=== PATIENT | male | born 1965 | race Caucasian/White ===

== ENCOUNTER 2020-06-30 14:25 | Emergency (ER) | payer MEDICARE, OTHER ==
[~2020-06-30] VITALS: Ht 185.4 cm; Wt 69.5 kg
[2020-06-30 15:17] LABS: CLARITY,URINE CLEAR (Clear); COLOR,URINE YELLOW (Yellow); GLUCOSE, URINE NEGATIVE (Neg); KETONES,URINE NEGATIVE (Neg); LEUKOCYTE ESTERASE ,URINE NEGATIVE (Neg); NITRITES, URINE NEGATIVE (Neg); OCCULT BLOOD,URINE TRACE-INTACT (Neg); PH,URINE 6.5 (4.8-8.0); PROTEIN,URINE NEGATIVE (Neg); UROBILINOGEN,URINE 0.2 E.U/dL (0.2-1.0)
[2020-06-30 15:24] LABS: UA COLLECTION TYPE VOIDED
[2020-06-30 15:25] LABS: SQUAMOUS EPITHELIAL CELL,UR FEW /LPF (FEW); URINE AMPHETAMINE SCREEN NEGATIVE (Neg); URINE BARBITUATE SCREEN NEGATIVE (Neg); URINE BENZODIAZEPINES SCREEN NEGATIVE (Neg); URINE CANNABINOID SCREEN NEGATIVE (Neg); URINE COCAINE SCREEN NEGATIVE (Neg); URINE METHADONE SCREEN NEGATIVE (Neg); URINE OPIATE SCREEN NEGATIVE (Neg); URINE PHENCYCLIDINE SCREEN NEGATIVE (Neg)
[2020-06-30 15:26] LABS: BACTERIA,URINE FEW /HPF (Neg); RBC,URINE 0-2 /HPF (0-2); WBC,URINE 0-4 /HPF (0-4)
--- NOTE | 2020-06-30 16:33 | NUR ---
[facility] PHONE [phone] CELL [phone]
--- NOTE | 2020-06-30 16:37 | NUR ---
CALLED [facility] RE: LOCATION OF DR DUQUE, THEY DO NOT KNOW, WILL REMIND HIM IF THEY SEE HIM
--- NOTE | 2020-06-30 17:30 | NUR ---
PT SITTING ON THE SIDE OF THE BED LOOKING OUTSIDE WITH BLANKET AROUND HIM.NO DISTRESS NOTED ,WILL CONT TO MONITOR .BREAKING PRIMARY NURSE AT THIS TIME.
--- NOTE | 2020-06-30 18:00 | NUR ---
Jessica at bedside
--- NOTE | 2020-06-30 19:00 | NUR ---
pt was placed on a 1798, I let him know of hold, he does not wish to have labs and is hungry, will allow to eat then will obtain labs
--- NOTE | 2020-06-30 19:00 | NUR ---
pt in hallway looking around redirected him back to his room . pt reports he is not trying to walk off he is looking for the bathroom . Took patient to bathroom
--- NOTE | 2020-06-30 19:15 | NUR ---
patint changed into green scrubs
--- NOTE | 2020-06-30 19:32 | NUR ---
pt brought dinner tray by tech
--- NOTE | 2020-06-30 20:10 | NUR ---
Marisol hernandez in ED - 06/30/20 at 2020 by MARY ELLEN PT ASKED FOR MORE WARM BLANKET REQUESTED
--- NOTE | 2020-06-30 20:10 | NUR ---
PT ASKED FOR MORE WARM BLANKETS BROUGHT TO BEDSIDE REQUESTED
--- NOTE | 2020-06-30 20:17 | NUR ---
PT FINALLY AGREED TO BLOOD DRAW . SENT CHRISTINE FROM LAB TO ROOM 9 FOR LAB DRAW . PT ALSO ASKED FOR MELATONIN FOR BEDTIME. DR LOZANO AWARE OF PATIENT ALLOWING BLOOD DRAW .
[2020-06-30 20:32] LABS: BASOPHILS % (AUTO) 0.5 % (0-1); EOSINOPHILS # (AUTO) 0.1 X10'3 (0-0.9); HEMATOCRIT 44.1 % (42.0-52.0); HEMOGLOBIN 15.1 g/dl (14.0-17.9); LYMPHOCYTES # (AUTO) 0.9 X10'3 (1.1-4.8); LYMPHOCYTES % (AUTO) 13.1 % (21-51); MEAN CORPUSCULAR HEMOGLOBIN 31.1 PG (27.0-31.0); MEAN CORPUSCULAR HGB CONC 34.2 g/dL (33.0-36.5); MEAN CORPUSCULAR VOLUME 90.8 FL (78-98); MEAN PLATELET VOLUME 7.1 FL (7.4-10.4); MONOCYTES # (AUTO) 0.4 X10'3 (0-0.9); MONOCYTES % (AUTO) 6.2 % (2-12); NEUTROPHILS # (AUTO) 5.6 X10'3 (1.8-7.7); NEUTROPHILS % (AUTO) 79.2 % (42-75); PLATELET COUNT 277 X10'3 (140-440); RED BLOOD COUNT 4.86 X10'6 (4.70-6.10); RED CELL DISTRIBUTION WIDTH 11.9 % (11.5-14.5)
[2020-06-30 20:45] LABS: ALANINE AMINOTRANSFERASE 20 U/L (12-78); ALBUMIN 3.7 G/DL (3.4-5.0); ALBUMIN/GLOBULIN RATIO 1.2 (1.1-1.5); ALKALINE PHOSPHATASE 88 IU/L (46-116); ANION GAP 9 (8-16); ASPARTATE AMINO TRANSFERASE 14 U/L (10-37); BILIRUBIN,TOTAL 0.5 MG/DL (0.1-1.0); BLOOD UREA NITROGEN 11 MG/DL (7-18); BUN/CREATININE RATIO 14.1 (5.4-32.0); CALCIUM 8.6 MG/DL (8.5-10.1); CHLORIDE 101 MMOL/L (99-107); CREATININE 0.78 MG/DL (0.60-1.10); GLUCOSE 129 MG/DL (70-104); POTASSIUM 3.9 MMOL/L (3.5-5.1); SODIUM 138 MMOL/L (135-145); TOTAL CARBON DIOXIDE 27.6 MMOL/L (24-32); TOTAL PROTEIN 6.9 G/DL (6.4-8.2); eGFR > 90 ML/MIN
[2020-06-30] MEDS ORDERED: Melatonin 3mg tablet PO SCH ×2 (21:00)
--- NOTE | 2020-06-30 21:00 | NUR ---
PT TRANSFERED FROM ROOM 9 TO ROOM 15
[2020-06-30 21:10] LABS: ETHANOL < 0.010 GM/DL (0.0-0.010)
[2020-07-01] MEDS ORDERED: diphenhydrAMINE 25mg capsule PO ONE (02:15)
--- NOTE | 2020-07-01 06:32 | NUR ---
Monitoring pt until he is moved to overflow. Report given to MARI Hernández in overflow by NOC RN. Pt resting quietly at this time.
--- NOTE | 2020-07-01 07:25 | NUR ---
Pt ambultated to overflow without any difficulty. MARI Hernández aware of pt's arrival.
--- NOTE | 2020-07-01 08:00 | NUR ---
Resting in bed
[2020-07-01 08:45] LABS: URINE AMPHETAMINE SCREEN NEGATIVE (Neg); URINE BARBITUATE SCREEN NEGATIVE (Neg); URINE BENZODIAZEPINES SCREEN NEGATIVE (Neg); URINE CANNABINOID SCREEN NEGATIVE (Neg); URINE COCAINE SCREEN NEGATIVE (Neg); URINE METHADONE SCREEN NEGATIVE (Neg); URINE OPIATE SCREEN NEGATIVE (Neg); URINE PHENCYCLIDINE SCREEN NEGATIVE (Neg)
--- NOTE | 2020-07-01 09:00 | NUR ---
Resting in bed
--- NOTE | 2020-07-01 10:00 | NUR ---
Resting in bed
--- NOTE | 2020-07-01 11:00 | NUR ---
Resting in bed
--- NOTE | 2020-07-01 11:06 | NUR ---
Breaking Primary RN, pt is being seen by MILLICENT Betts, he is calm and cooperative
--- NOTE | 2020-07-01 11:15 | NUR ---
patient mom called to check on status of pt, I let her know that he is currently being seen, she asked for a call back re status
--- NOTE | 2020-07-01 12:00 | NUR ---
Resting in bed
[2020-07-01] MEDS ORDERED: LORazepam 1 MG tablet PO ONE (12:20)
--- NOTE | 2020-07-01 13:00 | NUR ---
Resting in bed
--- NOTE | 2020-07-01 13:15 | NUR ---
Accepted by [facility], at 1310, by Dr Eason. Around 1600 admit.
--- NOTE | 2020-07-01 13:22 | NUR ---
Lunch relief for Primary Nurse. Pt is sitting upright on the bed eating lunch. Pt is calm and cooperative. Pt has no distress noted.
--- NOTE | 2020-07-01 13:30 | NUR ---
Pt is walking calmly around the overflow section to help himself relax and settle his nerves.
--- NOTE | 2020-07-01 14:00 | NUR ---
Resting in bed
--- NOTE | 2020-07-01 15:00 | NUR ---
Resting in bed
--- NOTE | 2020-07-01 16:25 | NUR ---
Breaking primary RN, pt is calmly walking around, no agitation observed, will continue to monitor
--- NOTE | 2020-07-01 17:04 | NUR ---
Patient up to BR, steady gait. Continue to monitor.
[2020-07-01 17:31] VITALS: BP 115/89
--- NOTE | 2020-07-01 18:08 | NUR ---
Patient sitting up in bed. Patient is used to always being busy and is quite bored here. Patient to go up to [facility] after change of shift. Continue to monitor.
== END 2020-07-01 22:43 ==
LOC: ER 14:25 → MERGE 14:25 → ER 07-01 22:43
DX: F32.9 Major depressive disorder, single episode, unspecified (principal); R45.851 Suicidal ideations
CPT/HCPCS: 36415; 80053; 80305; 80320; 81001; 84443; 85025; 99285; Q0163